=== PATIENT | female | born 1965 | race Caucasian/White ===

== ENCOUNTER 2022-08-18 14:19 | Outpatient (CLI) | payer OTHER, SELFPAY ==
--- NOTE | 2022-08-18 14:00 | CRLHL7_ITS ---
For Patients: As a result of the Century Cures Act, medical imaging exams and procedure reports are released immediately into your electronic medical record. You may view this report before your referring provider. If you have questions, please contact your health care provider. BILATERAL SCREENING MAMMOGRAM WITH COMPUTER-AIDED DETECTION AND TOMOSYNTHESIS TECHNIQUE: CC and MLO views were obtained. These mammographic images have been obtained using full-field digital technique. These mammographic images were interpreted with the benefit of computer-aided detection. Breast Tomosynthesis was used in this interpretation. COMPARISON FILM: 08/11/21, 07/29/20, 08/01/19. FINDINGS: There are scattered areas of fibroglandular density IMPRESSION: There is no radiographic evidence for malignancy. ASSESSMENT: BI-RADS Category 1: Negative RECOMMENDATION: Routine screening mammogram in 1 year. A lay language report of this examination will be provided to the patient. Tez Terry M.D. Diagnostic Radiologist [email or web address] Transcribed: 4:29 pm DW/Dictated by: Tez Terry MD @ 08/19/2022 9:09:00 AM (Electronically Signed)
== END 2022-08-18 14:20 | disposition home or self-care (01) ==
LOC: MAMMO 14:21
PROVIDERS: PCP Family Medicine; Visit Provider Family Medicine
DX: Z12.31 Encounter for screening mammogram for malignant neoplasm of breast (principal)
CPT/HCPCS: 77063; 77067

== ENCOUNTER 2022-11-27 08:47 | Outpatient (CLI) | payer OTHER, SELFPAY ==
[2022-11-27 09:54] LABS: Albumin* 4.5 g/dL (3.3-5.0); Chloride* 102 mmol/L (96-114); Sodium* 138 mmol/L (135-149)
[2022-11-27 09:55] LABS: Potassium* 4.8 mmol/L (3.6-5.1)
[2022-11-27 09:56] LABS: Cholesterol* 184 mg/dL (90-199)
[2022-11-27 09:57] LABS: Alkaline Phosphatase* 106 U/L (40-150); Aspartate Amino Transferase* 26 U/L (12-35); Bilirubin Total* 0.6 mg/dL (0.1-1.5); Blood Urea Nitrogen* 14 mg/dL (7-30); Carbon Dioxide* 29 mmol/L (20-32); Creatinine* 0.7 mg/dL (0.5-1.5); Estimated Glomerular Filt Rate 101 ml/min; Glucose* 124 mg/dL (60-115); Total Protein* 7.6 g/dL (6.0-8.3); Triglycerides* 210 mg/dL (40-149)
[2022-11-27 09:58] LABS: Alanine Aminotransferase* 27 U/L (4-35); Calcium* 9.5 mg/dL (8.4-10.6); HDL Cholesterol* 47 mg/dL (>=50); LDL Cholesterol Calculated 95 mg/dL (<100)
== END 2022-11-27 08:48 | disposition home or self-care (01) ==
PROVIDERS: PCP Family Medicine; Visit Provider Family Medicine
DX: E78.5 Hyperlipidemia, unspecified (principal)
CPT/HCPCS: 36415; 80053; 80061

== ENCOUNTER 2023-01-10 15:45 | Outpatient (CLI) | payer OTHER, SELFPAY ==
--- NOTE | 2023-01-10 16:00 | CRLHL7_ITS ---
For Patients: As a result of the Century Cures Act, medical imaging exams and procedure reports are released immediately into your electronic medical record. You may view this report before your referring provider. If you have questions, please contact your health care provider. INDICATION: Status post cervical polyp removal TECHNIQUE: Ultrasound pelvis transvaginal only COMPARISON: None FINDINGS: Uterus: 8.4 centimeter x 3.6 centimeter x 5.6 centimeter. Justyna myometrium. No masses. Nabothian cysts. Endometrium: Transvaginal imaging was performed to better evaluate the endometrium. 6 millimeter in thickness. No sign of endometrial mass or fluid. Right ovary: 1.9 centimeter x 1.0 centimeter x 1.0 centimeter size cm. No ovarian or adnexal masses. Normal arterial and venous blood flow. Left ovary: Not visualized. Cul-de-sac: No significant free fluid. IMPRESSION: Heterogeneous myometrium. Normal endometrium. Left ovary is not visualized. Nabothian cysts. Dictated by Tez Lacy MD @ 01/10/2023 6:46:24 PM (Electronically Signed)
== END 2023-01-10 15:46 | disposition home or self-care (01) ==
PROVIDERS: PCP Family Medicine; Visit Provider Obstetrics & Gynecology
DX: N88.8 Other specified noninflammatory disorders of cervix uteri (principal)
CPT/HCPCS: 76830

== ENCOUNTER 2023-08-08 14:25 | Outpatient (CLI) | payer MEDICARE, SELFPAY ==
--- NOTE | 2023-08-08 14:40 | CRLHL7_ITS ---
For Patients: As a result of the Cures Act, medical imaging exams and procedure reports are released immediately into your electronic medical record. You may view this report before your referring provider. If you have questions, please contact your health care provider. BILATERAL SCREENING MAMMOGRAM WITH COMPUTER-AIDED DETECTION AND TOMOSYNTHESIS TECHNIQUE: CC and MLO views were obtained. These mammographic images have been obtained using full-field digital technique. These mammographic images were interpreted with the benefit of computer-aided detection. Breast Tomosynthesis was used in this interpretation. COMPARISON FILM: 08/18/22, 08/11/21, 07/29/20. FINDINGS: There are scattered areas of fibroglandular density IMPRESSION: There is no radiographic evidence for malignancy. ASSESSMENT: BI-RADS Category 2: Benign RECOMMENDATION: Routine screening mammogram in 1 year. A lay language report of this examination will be provided to the patient. AGNES YEE M.D. Diagnostic/Nuclear Medicine Radiologist [email or web address] CHAD:[email or web address] Transcribed: 2:08 p.mYuniel rios/Dictated by: Agnes Yee MD @ 08/09/2023 9:20:00 AM (Electronically Signed)
== END 2023-08-08 14:26 | disposition home or self-care (01) ==
LOC: MAMMO 14:30
PROVIDERS: PCP Family Medicine; Visit Provider Family Medicine
DX: Z12.31 Encounter for screening mammogram for malignant neoplasm of breast (principal)
CPT/HCPCS: 77063; 77067

== ENCOUNTER 2023-09-24 08:20 | Outpatient (CLI) | payer MEDICARE, SELFPAY ==
[2023-09-24 08:42] LABS: Basophils Absolute Auto 0.03 K/uL (0.00-0.30); Basophils Percent Auto 0.4 % (0.0-3.0); Eosinophils Absolute Auto 0.13 K/uL (0.00-0.50); Eosinophils Percent Auto 1.7 % (0.0-7.0); Hemoglobin* 13.9 gm/dL (12.0-16.0); Immature Granulocytes Abs Auto 0.01 K/uL (0.00-0.30); Immature Granulocytes Pct Auto 0.1 %; Lymphocytes Absolute Auto 2.89 K/uL (0.90-2.90); Mean Corpuscular HGB Conc 32 gm/dL (32-36); Mean Corpuscular Hemoglobin 29 pg (26-34); Mean Corpuscular Volume 89 fL (80-100); Monocytes Percent Auto 6.4 % (0.0-11.0); Neutrophils Absolute Auto 4.06 K/uL (1.7-7.0); Neutrophils Percent Auto 53.4 % (42.0-72.0); Platelet Count* 354 K/uL (140-440); RDW Coefficient of Variation % 12.9 % (11.5-15.5); Red Blood Count 4.82 m/uL (4.00-5.20); White Blood Count* 7.61 K/uL (4.50-11.00)
[2023-09-24 08:43] LABS: Slide Review Reflex No
[2023-09-24 08:48] LABS: Cholesterol* 148 mg/dL (90-199)
[2023-09-24 08:49] LABS: HDL Cholesterol* 42 mg/dL (>=50); LDL Cholesterol Calculated 91 mg/dL (<100); Triglycerides* 73 mg/dL (40-149)
== END 2023-09-24 08:21 | disposition home or self-care (01) ==
PROVIDERS: PCP Family Medicine; Visit Provider Orthopaedic Surgery
DX: E78.5 Hyperlipidemia, unspecified (principal); R73.03 Prediabetes
CPT/HCPCS: 36415; 80061; 83036; 85025

== ENCOUNTER 2023-12-12 08:08 | Outpatient (CLI) | payer MEDICARE, SELFPAY ==
--- OUTSIDE RECORDS SUMMARY | 2023-12-12 08:12 | XMS_ITS | Clinical Summary ---
Author Name Unknown Organization [employer] [employer] Address [place], [place] [address] Care Team Providers Care Cafeteria Server Name Role Phone Brittany Harris Primary Care Provider Allergies Active Allergy Reactions Criticality Noted Date Comments Codeine Nausea Only 04/11/2007 Sulfa (Sulfonamide Antibiotics) Rash 03/24 Medications Medication Sig Dispensed Refills Start Date End Date Status Magnesium Glycinate 100 mg tab Take 1 tablet by mouth once daily. 0 07/18/2018 Active ondansetron (ZOFRAN) 8 mg tabletIndications:Migra ine with aura, not intractable, without status migrainosus Take 1 tablet by mouth every 8 hours if needed for Nausea/Vomiting . 30 tablet 0 03/26/2019 Active SUMAtriptan (IMITREX) 50 mg tabletIndications:Migra ine with aura and without status migrainosus, not intractable Give at minimum 2hrs apart. Max Dose: 200mg per 24hrs. 9 tablet 03/26/2019 Active losartan (COZAAR) 25 mg tabletIndications:Hyper tension, unspecified type TAKE ONE TABLET BY MOUTH ONE TIME DAILY 90 Tablet 0 11/16/2021 Active simvastatin (ZOCOR) 20 mg tabletIndications:Hyper lipidemia, unspecified hyperlipidemia type TAKE ONE TABLET BY MOUTH ONE TIME DAILY AT BEDTIME 90 Tablet 0 11/16/2021 Active hydroCHLOROthiazide (HCTZ) 25 mg tabletIndications:Hyper tension, unspecified type Take 0.5 tablets by mouth once daily. 45 Tablet 0 11/16/2021 Active Active Problems Problem Noted Date Diagnosed Date Hyperlipidemia, unspecified 08/29/2018 HTN (hypertension) 06/01/2016 Adenomatous colon polyp 04/14/2016 Overview: Colonoscopy 03/2016 polyp repeat in 5 years Colonoscopy 01/2021 four adenomatous polyps, repeat in 3 years Migraine with aura and witho ut status migrainosus, not intractable 12/02/2015 Elevated blood pressure read ing without diagnosis of hypertension 04/25/2007 Edema 04/25/2007 Immunizations Name Administration Dates Next Due Influenza A (H1N1), Inactivated 09/09/2009 Influenza A (H1N1), Inactiva miguelito (Age >=3 Years) 09/09/2009 Influenza RIV4 (Age 18+ Year s) PRESERV FREE 08/01/2019 Influenza Virus, Unspecified 07/25/2019,06/27/20 18 Influenza, IIV3 (Age >=3 years) 07/21/20 11,07/30/2010,07/31/2009,2007,08/25/2005 Influenza, IIV4 07/09/2020,06/29/2017 Influenza, IIV4 (=>6mos) MDV 06/27/2018,07/15/20 16 Td (Age >=7 Years) 06/24/2006 Tdap 06/01/2016 Zoster (Shingrix-RZV, recombinant) 09/28/2020, Family History Medical History Relation Name Comments Cancer Father stomach Hyperlipidemia Father Hypertension Father Other Father stomach ca, kid rose cancer/colon polyps Hypertension Maternal Aunt 1 Cancer-breast Maternal Aunt 2 x 2 Hypertension Maternal Uncle Cancer-breast Mother post menopausa l Hyperlipidemia Mother Hypertension Mother Other Mother colon polyps Relation Name Status Comments Father (Age 82) kidney can cer Maternal Aunt 1 Maternal Aunt 2 Maternal Uncle Mother Alive Social History Tobacco Use Types Packs/Day Years Used Date Smoking Tobacco: Never Smokeless Tobacco: Never Tobacco Cessation:Counseling Given: Yes Alcohol Use Standard Drinks/Week Comments Yes 0 (1 standard drink = 0.6 oz pur e alcohol) occasional PHQ-2 Answer Date Recorded PHQ-2 TOTAL SCORE 1 10/22/2020 Social Connections Answer Date Recorded Frequency of Communication with Friends and Fami ly Not on file 10/22/2021 Financial Resource Strain Answer Date R ecorded Difficulty of Paying Living Expenses Not on file 10/22/2021 Difficulty of Paying Living Expenses Not on file 10/22/2021 Sex and Gender Information Value Date Recorded Sex Assigned at Not on file Gender Identity Not on file Sexual Orientation Not on file Obstetrics History Para Term AB IAB SAB Ectopic Multiple Livin g Live Births 3 3 3 3 Date Outcome GA Total Labor Labor/2nd/3rd Weight Sex Delivery Anes PTL Karley A1 A5 Name Cl in Term Term Term Last Filed Vital Signs Vital Sign Reading Time Taken Comments Blood Pressure 118/63 01/23/2021 7:54 AM CDT Pulse 86 01/23/2021 7:54 AM CDT Temperature 37 ??C (98.6 ??F) 08/15/2019 2:1 6 PM CDT Respiratory Rate 20 01/16/2009 2:12 PM CDT Oxygen Saturation 100% 01/23/2021 7:5 4 AM CDT Inhaled Oxygen Concentration - - Weight 90.2 kg (198 lb 12.8 oz) 10/22/2020 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 Height 164 cm (5' 4.57) 08/15/2019 2:1 6 PM CDT Body Mass Index 33.53 08/15/2019 2:16 PM CDT Plan of Treatment Health Maintenance Due Date Last Done Comments COVID-19 vaccine series (#1) 1965 HIV for age 15-65 1980 BMI (ht and wt on same day) for age 18+ 08/15/2020 08/15/2019, 03/26/2019, 07/18/2018, Additional history exists Depression screening for age 12+ 10/22/2021 10/22/2020, 08/15/2019, 07/18/2018, Additional history exists Mammogram for age 45-75 08/11/2022 08/11/20 21, 07/29/2020, 08/01/2019, Additional history exists Influenza for age 50-64 06/24/2023 07/09/20 20, 08/01/2019, 07/25/2019, Additional history exists Colonoscopy through age 75 01/24/202401/23, 01/23/2021, 04/09/2016 Lipids for age 45-75 10/20/2025 10/20/2020, 08/15/2019, 08/24/2018 Pap test for age 21-65 12/13/2025 3, 12/13/2022, 06/29/2017, Additional history exists Tetanus booster 06/01/2026 06/01/2016, 06/24/2006 Tdap Completed 06/01/2016 Hepatitis C screening for age 18-79 Completed 08/24/2018 Zoster (shingles) series for age 50+ Completed 09/28/2020, 07/09/2020 Pneumococcal series for age 6-64 Aged Out No longer eligible based on patient's age to complete this topic Care Teams Cafeteria Server Relationship Specialty Start Date End Date Brittany Harris PA [address] [place] [address] PCP - General Physician Family Law Specialist 09/30/20
== END 2023-12-12 08:09 | disposition home or self-care (01) ==
PROVIDERS: PCP Family Medicine; Visit Provider Family Medicine
DX: Z00.00 Encounter for general adult medical examination without abnormal findings (principal); I10 Essential (primary) hypertension; E78.5 Hyperlipidemia, unspecified
CPT/HCPCS: 80053

== ENCOUNTER 2024-02-21 15:34 | Outpatient (CLI) | payer OTHER, SELFPAY ==
--- OUTSIDE RECORDS SUMMARY | 2024-02-21 15:39 | XMS_ITS | Clinical Summary ---
Author Name Unknown Organization [employer] [facility] [employer] Address [place], [place] [address] Care Team Providers Care Playground Worker Name Role Phone Brittany Harris Primary Care Provider Allergies Active Allergy Reactions Criticality Noted Date Comments Codeine Nausea Only 04/11/2007 Sulfa (Sulfonamide Antibiotics) Rash 03/24 Medications Medication Sig Dispensed Refills Start Date End Date Status Magnesium Glycinate 100 mg tab Take 1 tablet by mouth once daily. 0 07/18/2018 Active ondansetron (ZOFRAN) 8 mg tabletIndications:Greyson cintia with aura, not intractable, without status migrainosus Take 1 tablet by mouth every 8 hours if needed for Nausea/Vomiting. 30 tablet 03/26/2019 Active SUMAtriptan (IMITREX) 50 mg tabletIndications:Greyson cintia with aura and without status migrainosus, not intractable Give at minimum 2hrs apart. Max Dose: 200mg per 24hrs. 9 tablet 03/26/2019 Active losartan (COZAAR) 25 mg tabletIndications:Hyp ertension, unspecified type TAKE ONE TABLET BY MOUTH ONE TIME DAILY 90 Tablet 11/16/2021 Active simvastatin (ZOCOR) 20 mg tabletIndications:Hyp erlipidemia, unspecified hyperlipidemia type TAKE ONE TABLET BY MOUTH ONE TIME DAILY AT BEDTIME 90 Tablet 11/16/2021 Active hydroCHLOROthiazide (HCTZ) 25 mg tabletIndications:Hyp ertension, unspecified type Take 0.5 tablets by mouth once daily. 45 Tablet 11/16/2021 Active polyethylene glycol-electrolyte (GOLYTELY) 236-22.74-6.74 -5.86 gram suspensionIndications :Adenomatous polyp of colon, unspecified part of colon Drink 2 liters the day before colonoscopy and 2 liters 6 hours before colonoscopy appointment 4000 mL 02/27/2024 Active Active Problems Problem Noted Date Diagnosed Date Hyperlipidemia, unspecified 08/29/2018 HTN (hypertension) 06/01/2016 Adenomatous colon polyp 04/14/2016 Overview: Colonoscopy 03/2016 polyp repeat in 5 years Colonoscopy 01/2021 four adenomatous polyps, repeat in 3 years Migraine with aura and witho ut status migrainosus, not intractable 12/02/2015 Elevated blood pressure read ing without diagnosis of hypertension 04/25/2007 Edema 04/25/2007 Encounters Date Type Department Care Team Description 02/13/2024 Telephone [facility] [address] [place] [address] Lucien Murcia MD Questions 01/23/2024 Telephone [facility] [address] [place] [address] Lucien Murcia MD Questions (Colonoscopy ) 01/06/2024 Telephone [facility] [address] [place] [address] Lucien Murcia MD order from Last 3 Months Immunizations Name Administration Dates Next Due Influenza [...] (198 lb 12.8 oz) 10/22/2020 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 Height 164 cm (5' 4.57) 08/15/2019 2:1 6 PM CDT Body Mass Index 33.53 08/15/2019 2:16 PM CDT Plan of Treatment Upcoming Encounters Date Type Department Care Team (Late st Contact Info) Description 03/05/2024 11:45 AM CDT Office Visit [facility] at [facility] [address] [place] [address] Lucien Murcia MD [address] [place] [address] Health Maintenance Due Date Last Done Comments HIV for age 15-65 1980 BMI (ht and wt on same day) for age 18+ 08/15/2020 08/15/2019, 03/26/2019, 07/18/2018, Additional history exists Depression screening for age 12+ 10/22/2021 10/22/2020, 08/15/2019, 07/18/2018, Additional history exists Mammogram for age 45-75 08/11/2022 08/11/20 21, 07/29/2020, 08/01/2019, Additional history exists COVID-19 vaccine series ( season) 2023 Colonoscopy through age 75 01/24/202401/23, 01/23/2021, 04/09/2016 Influenza for age 50-64 06/24/2024 07/09/20 20, 08/01/2019, 07/25/2019, Additional history exists Lipids for age 45-75 10/20/2025 10/20/2020, 08/15/2019, 08/24/2018 Pap test for age 21-65 12/13/2025 3, 12/13/2022, 06/29/2017, Additional history exists Tetanus booster 06/01/2026 06/01/2016, 06/24/2006 Tdap Completed 06/01/2016 Hepatitis C screening for age 18-79 Completed 08/24/2018 Zoster (shingles) series for age 50+ Completed 09/28/2020, 07/09/2020 Pneumococcal series for age 6-64 Aged Out No longer eligible based on patient's age to complete this topic Procedures Procedure Name Priority Date/Time Associated Diagnosis Comments HPV THIN PREP Routine 12/13/2022 8:15 AM MEDICAL AFFAIRS MANAGER SCAN-MAMMOGRAPHY REPORT 08/11/2021 12:00 AM CDT COLONOSCOPY 01/23/2021 7:21 AM CDT LIPID PANEL W REFLEX MEASURED LDL Routine 10/20/2020 7:15 AM MEDICAL AFFAIRS MANAGER Hypertension, unspecified type ANTI HCV Routine 08/24/2018 12:17 PM CDT Encounter for hepatitis C screening test for low risk patient from Last 3 Months or Most Recently Relevant to Health Maintenance Results * HPV HIGH RISK (12/13/2022 8:15 AM MEDICAL AFFAIRS MANAGER) TYPE 16 Negative Negative 12/15/2022 4:49 PM MEDICAL AFFAIRS MANAGER [facility] TYPE 18 Negative Negative 12/15/2022 4:49 PM MEDICAL AFFAIRS MANAGER [facility] OTHER HIGH RISK TYPES Negative Negative 12/15/2022 4:49 PM MEDICAL AFFAIRS MANAGER [facility] Other (Cervical/Vagina l) 12/13/2022 8:15 AM MEDICAL AFFAIRS MANAGER 12/14/2022 10:40 AM MEDICAL AFFAIRS MANAGER Narrative [facility] - 12/15/2022 4:49 PM MEDICAL AFFAIRS MANAGER HPV types 16, 18, 31, 33, 35, 39, 45, 51, 52, 56, 58, 59, 66 and 68 DNA were undetectable or below the pre-set threshold. Methodology: Kiki Hyacinth 4800 HPV Test Bernardo Hartmann MD MICROBIOLOGY [facility] [address] [place] [address], * SCAN-MAMMOGRAPHY REPORT (08/11/2021 12:00 AM CDT) Anatomical Region Laterality Modality Other Scanner OTHER * COLONOSCOPY (01/23/2021 7:21 AM CDT) 01/23/2021 7:21 AM CDT Narrative Transcriptions Lucien Murcia MD - 01/23/2021 8:35 AM CDT Patient Name: Libby Ramírez Procedure Date: 01/23/2021 Gender: Female Date of : 1965 Admit Type: Outpatient Procedure: Colonoscopy Proceduralist: Lucien Murcia MD , Gege Maya RN(Nurse) Indications/Pre-Op Diagnosis: Surveillance: Personal history ofadenomatous polyps on last colonoscopy 5 years ago, Last colonoscopy: March 2016 Medications: Fentanyl 100 micrograms IV, Midazolam 4 mgIV, The level of sedation administered wasmoderate Procedure Description: The patient had risks, benefits and alternatives explained to andgave informed consent. The patient had a stable cardiopulmonary status and judged an adequate candidate for conscious sedation. The [id number] was passed through the anus and advanced tothe cecum, identified by appendiceal orifice and ileocecal valve. The colonoscopy was performed without difficulty. The patient toleratedthe procedure well. The quality of the bowel preparation was good. The ileocecal valve, appendiceal orifice, and rectum were photographed. Complications: No immediate complications. Estimated Blood Loss & Specimen: Estimated blood loss: none. Specimen collected - Yes and sent to Laboratory Findings: The perianal and digital rectal examinations were normal. A 4 mm polyp was found in the transverse colon. The polyp wassessile. The polyp was removed with a cold snare. Resection and retrieval were complete. Three sessile polyps were found in the ascending colon. The polypswere 3 to 6 mm in size. These polyps were removed with a cold snare. Resection and retrieval were complete. Scattered small-mouthed diverticula were found in the sigmoidcolon. The exam was otherwise without abnormality on direct and retroflexion views. Impressions/Post-Op Diagnosis: - One 4 mm polyp in the transverse colon, removed with a cold snare. Resected and retrieved. - Three 3 to 6 mm polyps in the ascending colon, removed with a cold snare. Resected and retrieved. - Diverticulosis in the sigmoid colon. - The examination was otherwise normal on direct and retroflexionviews. Recommendation: - Patient has a contact number available for emergencies. The signsand symptoms of potential delayed complications were discussed with the patient. Return to normal activities tomorrow. Written discharge instructions were provided to the patient. - Resume previous diet. - Continue present medications. - Await pathology results. - Repeat colonoscopy date to be determined after pending pathology results are reviewed for surveillance. Moderate Sedation: Moderate (conscious) sedation was administered by the endoscopy nurse and supervised by the endoscopist. The following parameters were monitored: oxygen saturation, heart rate, respiratory rate, blood pressure, adequacy of pulmonary ventilation and reponse to care. Please refer to the patient's medical record flowsheets and nursing notes for moderate sedation details. Total physician intraservice time was 26 minutes. Lucien Murcia MD 01/23/2021 8:35:05 AM This report has been signed electronically. Note Initiated On: 01/23/2021 7:21 AM Procedure Code(s): --- Professional --- 57163, Colonoscopy, flexible; with removalof tumor(s), polyp(s), or other lesion(s) bysnare technique Diagnosis Code(s): --- Professional --- K63.5, Polyp of colon Z86.010, Personal history of colonicpolyps K57.30, Diverticulosis of large intestine without perforation or abscess withoutbleeding CPT copyright 2019 [employer]. All rights reserved. The codes documented in this report are preliminary and upon primary special education teacher reviewmay be revised to meet current compliance requirements. Scope In: 8:03:59 AM Scope Withdrawal Time 0 hours 8 minutes 41 seconds Scope Out: 8:27:47 AM Lucien Murcia MD PROCEDURE ORD * (ABNORMAL) LIPID PANEL W REFLEX MEASURED LDL (10/20/2020 7:15 AM MEDICAL AFFAIRS MANAGER) CHOLESTEROL,TOTAL 183 100 - 199 mg/dL 10/20/2020 1:59 PM MEDICAL AFFAIRS MANAGER [facility] TRIGLYCERIDES 170(H) <150 mg/dL 10/20/2020 1:59 PM MEDICAL AFFAIRS MANAGER [facility] HDL CHOLESTEROL 45 >40 mg/dL 0 1:59 PM MEDICAL AFFAIRS MANAGER [facility] NON-HDL CHOLESTEROL 138 <145 mg/dl 10/20/2020 1:59 PM MEDICAL AFFAIRS MANAGER [facility] CHOL/HDL RATIO 4.07 <4.50 10/20/2020 1:59 PM MEDICAL AFFAIRS MANAGER [facility] LDL CHOLESTEROL 104 <=130 mg/dL 10/20/2020 1:59 PM MEDICAL AFFAIRS MANAGER [facility] PROVIDER ORDERED STATUS RANDOM 10/20/2020 1:59 PM MEDICAL AFFAIRS MANAGER [facility] Blood BLOOD SPECIMEN / Unknown Venipuncture / Unknown 10/20/2020 7:15 AM MEDICAL AFFAIRS MANAGER 10/20/2020 7:15 AM MEDICAL AFFAIRS MANAGER Brittany GUPTA CHEMISTRY [facility] [address] [place] [address], * ANTI HCV (08/24/2018 12:17 PM CDT) HEPATITIS C ANTIBODY Non-React jim Non-React jim 08/24/2018 8:49 PM CDT [facility] Comment:Antibodies to HCV no t detected; does not exclude the possibility of exposure to HCV. Blood BLOOD SPECIMEN / Unknown Venipuncture / Unknown 08/24/2018 12:17 PM CDT 08/24/2018 12:17 PM CDT Shari Regan NP [facility] [address] [place] [address], from Last 3 Months or Most Recently Relevant to Health Maintenance Care Teams Playground Worker Relationship Specialty Start Date End Date Brittany Harris PA [address] [place] [address] PCP - General Physician Property Management Specialist 09/30/20
== END 2024-02-21 15:35 | disposition home or self-care (01) ==
LOC: NFLDREF 15:37
PROVIDERS: PCP Family Medicine; Visit Provider Family Medicine
DX: I10 Essential (primary) hypertension (principal)
CPT/HCPCS: 80048

== ENCOUNTER 2024-03-05 10:56 | Outpatient (CLI) | payer OTHER, SELFPAY ==
--- OUTSIDE RECORDS SUMMARY | 2024-03-05 11:02 | XMS_ITS | Clinical Summary ---
Author Name Unknown Organization [facility] Address [place], [place] [address] Care Team Providers Care Hammerer Name Role Phone Bernardo Hartmann MD Primary Care Provider [phone] Allergies Active Allergy Reactions Criticality Noted Date [...] Encounters Date Type Department Care Team Description 03/01/2024 Orders Only [address] [address] Lucien Murcia MD <No scans attached> 02/28/[address] [address] Lucien Murcia MD Appointment 02/13/2024 Telephone [facility] [address] [place] [address] Lucien Murcia MD Questions 01/23/2024 Telephone [facility] [address] [place] [address] Lucien Murcia MD Questions (Colonoscopy ) 01/06/2024 Telephone [facility] [address] [place] [address] Lucien Murcia MD order from Last 3 [...] (198 lb 12.8 oz) 10/22/2020 9:29 AM PROJECT ACCOUNT MANAGER pt reported Height 164 cm (5' [...] 08/01/2019, Additional history exists COVID-19 vaccine series (2022- season) 2023 07/24/2023, 07/05/2022, 02/24/2022, Additional history exists Colonoscopy through age 75 01/24/202403/05, 01/23/2021, 01/23/2021, Additional history exists Influenza for age 50-64 06/24/2024 07/09/20 20, [...] Procedure Name Priority Date/Time Associated Diagnosis Comments COLONOSCOPY SCREENING Routine 03/05/2024 7:59 AM CDT Adenomatous polyp of colon, unspecified part of colon HPV THIN PREP Routine 12/13/2022 8:15 AM PROJECT ACCOUNT MANAGER SCAN-MAMMOGRAPHY REPORT 08/11/2021 12:00 AM CDT LIPID PANEL W REFLEX MEASURED LDL Routine 10/20/2020 7:15 AM PROJECT ACCOUNT MANAGER Hypertension, unspecified type ANTI HCV Routine 08/24/2018 12:17 PM CDT Encounter for hepatitis C screening test for low risk patient from Last 3 Months or Most Recently Relevant to Health Maintenance Results * HPV HIGH RISK (12/13/2022 8:15 AM PROJECT ACCOUNT MANAGER) TYPE 16 Negative Negative 12/15/2022 4:49 PM PROJECT ACCOUNT MANAGER [facility] TYPE 18 Negative Negative 12/15/2022 4:49 PM PROJECT ACCOUNT MANAGER [facility] OTHER HIGH RISK TYPES Negative Negative 12/15/2022 4:49 PM PROJECT ACCOUNT MANAGER [facility] Other (Cervical/Vagina l) 12/13/2022 8:15 AM PROJECT ACCOUNT MANAGER 12/14/2022 10:40 AM PROJECT ACCOUNT MANAGER Narrative [facility] - 12/15/2022 4:49 PM PROJECT ACCOUNT MANAGER HPV types 16, 18, 31, 33, 35, 39, 45, 51, 52, 56, 58, 59, 66 and 68 DNA were undetectable or below the pre-set threshold. Methodology: Kiki Hyacinth 4800 HPV Test Bernardo Hartmann MD MICROBIOLOGY [facility] [address] [place] [address], * SCAN-MAMMOGRAPHY REPORT (08/11/2021 12:00 AM CDT) [...] adequate candidate for conscious sedation. The [id number] was passed through the anus and advanced [...] 7:21 AM Procedure Code(s): --- Professional --- 38283, Colonoscopy, flexible; with removalof tumor(s), polyp(s), or other lesion(s) bysnare technique Diagnosis Code(s): --- Professional --- K63.5, Polyp of colon Z86.010, Personal history of colonicpolyps K57.30, Diverticulosis of large intestine without perforation or abscess withoutbleeding CPT copyright 2019 [employer]. All rights reserved. The codes documented in this report are preliminary and upon hand mounter reviewmay be revised to meet current compliance requirements. Scope In: 8:03:59 AM Scope Withdrawal Time 0 hours 8 minutes 41 seconds Scope Out: 8:27:47 AM Lucien Murcia MD PROCEDURE ORD * (ABNORMAL) LIPID PANEL W REFLEX MEASURED LDL (10/20/2020 7:15 AM PROJECT ACCOUNT MANAGER) CHOLESTEROL,TOTAL 183 100 - 199 mg/dL 10/20/2020 1:59 PM PROJECT ACCOUNT MANAGER [facility] TRIGLYCERIDES 170(H) <150 mg/dL 10/20/2020 1:59 PM PROJECT ACCOUNT MANAGER [facility] HDL CHOLESTEROL 45 >40 mg/dL 0 1:59 PM PROJECT ACCOUNT MANAGER [facility] NON-HDL CHOLESTEROL 138 <145 mg/dl 10/20/2020 1:59 PM PROJECT ACCOUNT MANAGER [facility] CHOL/HDL RATIO 4.07 <4.50 10/20/2020 1:59 PM PROJECT ACCOUNT MANAGER [facility] LDL CHOLESTEROL 104 <=130 mg/dL 10/20/2020 1:59 PM PROJECT ACCOUNT MANAGER [facility] PROVIDER ORDERED STATUS RANDOM 10/20/2020 1:59 PM PROJECT ACCOUNT MANAGER [facility] Blood BLOOD SPECIMEN / Unknown Venipuncture / Unknown 10/20/2020 7:15 AM PROJECT ACCOUNT MANAGER 10/20/2020 7:15 AM PROJECT ACCOUNT MANAGER Brittany GUPTA CHEMISTRY [facility] [address] [place] [address], * ANTI HCV (08/24/2018 12:17 PM CDT) HEPATITIS C ANTIBODY Non-React jim Non-React jim 08/24/2018 8:49 PM CDT [facility] Comment:Antibodies to HCV no t detected; does not exclude the possibility of exposure to HCV. Blood BLOOD SPECIMEN / Unknown Venipuncture / Unknown 08/24/2018 12:17 PM CDT 08/24/2018 12:17 PM CDT Shari Regan NP SEND OUTS [facility] [address] [place] [address], from Last 3 Months or Most Recently Relevant to Health Maintenance Care Teams Hammerer Relationship Specialty Start Date End Date Bernardo Hartmann MD [address] [place] [id number] PCP - General Family Practice 02/28/24
--- NOTE | 2024-03-05 12:30 | W.ANESCHARGE ---
Anesthesia Charges Start Date/Time Anesthesia Start Date: 03/05/24 Anesthesia Start Time: 11:58 Stop Date/Time Anesthesia Stop Date: 03/05/24 Anesthesia Stop Time: 12:27
--- NOTE | 2024-03-05 12:41 | W.ANESCHARGE ---
Anesthesia Charges Start Date/Time Anesthesia Start Date: 03/05/24 Anesthesia Start Time: 11:58 Stop Date/Time Anesthesia Stop Date: 03/05/24 Anesthesia Stop Time: 12:27
== END 2024-03-05 10:57 | disposition home or self-care (01) ==
LOC: OP CLINIC 10:57
PROVIDERS: PCP Family Medicine; Visit Provider Internal Medicine Gastroenterology
DX: Z12.11 Encounter for screening for malignant neoplasm of colon (principal); K63.5 Polyp of colon; K62.1 Rectal polyp; Z86.010 Personal history of colon polyps
CPT/HCPCS: 00811; 45385; J2704

== ENCOUNTER 2024-08-09 13:55 | Outpatient (CLI) | payer OTHER, SELFPAY ==
--- OUTSIDE RECORDS SUMMARY | 2024-08-09 13:58 | XMS_ITS | Clinical Summary ---
Author Organization [facility] Address [place], [place] [address] Care Team Providers Care Staining Machine Operator Name Role Phone Bernardo Hartmann MD Primary Care Provider [phone] Allergies Active Allergy Reactions Criticality Noted Date [...] HTN (hypertension) 06/01/2016 Adenomatous colon polyp 04/14/2016 Overview (03/05/2024): Colonoscopy 03/2016 polyp repeat in 5 years Colonoscopy 01/2021 four adenomatous polyps, repeat in 3 years Colonoscopy 02/2024 polyp, repeat in 5 years Migraine with aura and witho ut [...] Friends and Fami ly Not on file 03/05/2024 Financial Resource Strain Answer Date R ecorded [...] Outcome GA Total Labor Labor/2nd/3rd Weight Sex Type Anes PTL Karley A1 A5 Name Clin Term Term Term Last Filed Vital Signs [...] (198 lb 12.8 oz) 10/22/2020 9:29 AM BASEBALL WINDER pt reported Height 164 cm (5' 4.57) [...] history exists COVID-19 vaccine series ( season) 2024 07/24/2023, 07/05/2022, 02/24/2022, Additional history exists Influenza for age 50-64 06/24/2024 07/09/20 20, 08/01/2019, 07/25/2019, Additional history exists Lipids for age 45-75 10/20/2025 10/20/2020, 08/15/2019, 08/24/2018 Pap test for age 21-65 12/13/2025 3, 12/13/2022, 06/29/2017, Additional history exists Tetanus booster 06/01/2026 06/01/2016, 06/24/2006 Colonoscopy through age 75 03/05/202903/05, 03/05/2024, 01/23/2021, Additional history exists Tdap Completed 06/01/2016 Hepatitis C screening for age 18-79 Completed 08/24/2018 Zoster (shingles) series for age 50+ Completed 09/28/2020, 07/09/2020 Pneumococcal series for age 6-64 Aged Out No longer eligible based on patient's age to complete this topic Procedures Procedure Name Priority Date/Time Associated Diagnosis Comments COLONOSCOPY SCREENING Routine 03/05/2024 12:00 AM CDT History of colon polyps HPV HIGH RISK Routine 12/13/2022 8:15 AM BASEBALL WINDER SCAN-MAMMOGRAPHY REPORT 08/11/2021 12:00 AM CDT LIPID PANEL W REFLEX MEASURED LDL Routine 10/20/2020 7:15 AM BASEBALL WINDER Hypertension, unspecified type ANTI HCV Routine 08/24/2018 12:17 PM CDT Encounter for hepatitis C screening test for low risk patient from Last 3 Months or Most Recently Relevant to Health Maintenance Results * COLONOSCOPY SCREENING (03/05/2024 12:00 AM CDT) Lucien Murcia MD GI PROCEDURE ORD * HPV HIGH RISK (12/13/2022 8:15 AM BASEBALL WINDER) TYPE 16 Negative Negative 12/15/2022 4:49 PM BASEBALL WINDER [facility] TYPE 18 Negative Negative 12/15/2022 4:49 PM BASEBALL WINDER [facility] OTHER HIGH RISK TYPES Negative Negative 12/15/2022 4:49 PM BASEBALL WINDER [facility] Other (Cervical/Vagina l) 12/13/2022 8:15 AM BASEBALL WINDER 12/14/2022 10:40 AM BASEBALL WINDER Narrative [facility] - 12/15/2022 4:49 PM BASEBALL WINDER HPV types 16, 18, 31, 33, 35, 39, 45, 51, 52, 56, 58, 59, 66 and 68 DNA were undetectable or below the pre-set threshold. Methodology: Kiki Hyacinth 4800 HPV Test Bernardo Hartmann MD MICROBIOLOGY [facility] [address] [place] [address], * SCAN-MAMMOGRAPHY REPORT (08/11/2021 12:00 AM CDT) Anatomical Region Laterality Modality Other Scanner OTHER * (ABNORMAL) LIPID PANEL W REFLEX MEASURED LDL (10/20/2020 7:15 AM BASEBALL WINDER) CHOLESTEROL,TOTAL 183 100 - 199 mg/dL 10/20/2020 1:59 PM BASEBALL WINDER [facility] TRIGLYCERIDES 170(H) <150 mg/dL 10/20/2020 1:59 PM BASEBALL WINDER [facility] HDL CHOLESTEROL 45 >40 mg/dL 0 1:59 PM BASEBALL WINDER [facility] NON-HDL CHOLESTEROL 138 <145 mg/dl 10/20/2020 1:59 PM BASEBALL WINDER [facility] CHOL/HDL RATIO 4.07 <4.50 10/20/2020 1:59 PM BASEBALL WINDER [facility] LDL CHOLESTEROL 104 <=130 mg/dL 10/20/2020 1:59 PM BASEBALL WINDER [facility] PROVIDER ORDERED STATUS RANDOM 10/20/2020 1:59 PM BASEBALL WINDER [facility] Blood BLOOD SPECIMEN / Unknown Venipuncture / Unknown 10/20/2020 7:15 AM BASEBALL WINDER 10/20/2020 7:15 AM BASEBALL WINDER Brittany GUPTA CHEMISTRY [facility] [address] [place] [address], [place] * ANTI HCV (08/24/2018 12:17 PM CDT) HEPATITIS C ANTIBODY Non-React jim Non-React jim 08/24/2018 8:49 PM CDT [facility] Comment:Antibodies to HCV no t detected; does not exclude the possibility of exposure to HCV. Blood BLOOD SPECIMEN / Unknown Venipuncture / Unknown 08/24/2018 12:17 PM CDT 08/24/2018 12:17 PM CDT Shari Regan MODERN GREEK STUDIES PROFESSOR SEND OUTS [facility] [address] [place] [address], from Last 3 Months or Most Recently Relevant to Health Maintenance Care Teams Staining Machine Operator Relationship Specialty Start Date End Date Bernardo Hartmann MD [address] [place] [phone] PCP - General Family Practice 02/28/24
--- NOTE | 2024-08-09 14:00 | CRLHL7_ITS ---
For Patients: As a result of the Century Cures Act, medical imaging exams and procedure reports are released immediately into your electronic medical record. You may view this report before your referring provider. If you have questions, please contact your health care provider. BILATERAL SCREENING MAMMOGRAM WITH COMPUTER-AIDED DETECTION AND TOMOSYNTHESIS TECHNIQUE: CC and MLO views were obtained. These mammographic images have been obtained using full-field digital technique. These mammographic images were interpreted with the benefit of computer-aided detection. Breast Tomosynthesis was used in this interpretation. COMPARISON FILM: 08/08/23, 08/18/22, 08/11/21. FINDINGS: There are scattered areas of fibroglandular density. IMPRESSION: There is no radiographic evidence for malignancy. ASSESSMENT: BI-RADS Category 1: Negative RECOMMENDATION: Routine screening mammogram in 1 year. A lay language report of this examination will be provided to the patient. Tez Terry M.D. Diagnostic Radiologist [email or web address] SP/Dictated by: Tez Terry MD @ 08/14/2024 11:41:00 AM (Electronically Signed)
== END 2024-08-09 13:56 | disposition home or self-care (01) ==
LOC: MAMMO 13:56
PROVIDERS: PCP Family Medicine; Visit Provider Family Medicine
DX: Z12.31 Encounter for screening mammogram for malignant neoplasm of breast (principal)
CPT/HCPCS: 77063; 77067

== ENCOUNTER 2024-12-10 07:52 | Outpatient (CLI) | payer OTHER, SELFPAY | END 2024-12-10 07:53 | disposition home or self-care (01) | LOC: NFLDREF 12-12 06:31 | PROVIDERS: PCP Family Medicine; Referring Provider Family Medicine; Visit Provider Family Medicine | DX: E78.5 Hyperlipidemia, unspecified (principal); R73.03 Prediabetes; I10 Essential (primary) hypertension | CPT/HCPCS: 80053; 80061 ==

== ENCOUNTER 2024-12-25 13:56 | Outpatient (CLI) | payer OTHER, SELFPAY ==
--- NOTE | 2025-01-01 13:26 | W.PM.SLEEP ---
Sleep Study Details Details Interpreting Provider: Ruth Date of Sleep Study: 12/25/24 Sleep Study Details: STUDY TYPE:? Home unattended ? BMI:? 35 ORDERING PROVIDER:? Ruth INDICATION:? Concern about sleep apnea ? SLEEP SUMMARY:? 431 minutes monitored RESPIRATORY SUMMARY:? AHI 12.8 Low oxygen 88 0.8 minutes oxygen less than 90% Snoring 98.8% PERIODIC LIMB MOVEMENTS OF SLEEP:? Not recorded CARDIAC:? Range 55-89, mean 63.1 beats per minute IMPRESSION:? Mild obstructive sleep apnea RECOMMENDATION: Treatment options include CPAP dental appliance weight loss and/or airway expansion surgery.
== END 2024-12-25 13:57 | disposition home or self-care (01) ==
LOC: SLEEP 13:57
PROVIDERS: PCP Family Medicine; Visit Provider Otolaryngology
DX: G47.33 Obstructive sleep apnea (adult) (pediatric) (principal)
CPT/HCPCS: 95806

== ENCOUNTER 2025-08-14 14:17 | Outpatient (CLI) | payer OTHER, SELFPAY ==
--- NOTE | 2025-08-14 14:40 | CRLHL7_ITS ---
For Patients: As a result of the Century Cures Act, medical imaging exams and procedure reports are released immediately into your electronic medical record. You may view this report before your referring provider. If you have questions, please contact your health care provider. INDICATION: BILATERAL SCREENING MAMMOGRAM, ASYMPTOMATIC 60 Y/O FEMALE COMPARISON: , 08/09/2024, 08/08/2023, 08/18/2022 TECHNIQUE: Digital mammogram in CC and MLO projections including computer-aided detection (CAD) and tomosynthesis. BREAST COMPOSITION: There are scattered areas of fibroglandular density. FINDINGS: No suspicious findings. ASSESSMENT: BI-RADS 1 Negative RECOMMENDATION: Annual screening mammogram. A lay language report of this examination will be provided to the patient. Dictated by: Tez Terry MD @ 08/15/2025 12:01:04 (Electronically Signed)
== END 2025-08-14 14:18 | disposition home or self-care (01) ==
LOC: MAMMO 14:18
PROVIDERS: PCP Family Medicine; Visit Provider Family Medicine
DX: Z12.31 Encounter for screening mammogram for malignant neoplasm of breast (principal)
CPT/HCPCS: 77063; 77067